=== PATIENT | male | born 1980 | race African-American/Black ===

== ENCOUNTER 2018-07-28 12:54 | Emergency (ER) | payer OTHER ==
[~2018-07-28] VITALS: Ht 195.6 cm; Wt 88.5 kg
[2018-07-28 12:57] VITALS: BP 116/64
== END 2018-07-28 13:50 | disposition home or self-care (01) ==
LOC: ER 12:54
DX: S01.81XA Laceration without foreign body of other part of head, initial encounter (principal); W22.03XA Walked into furniture, initial encounter; Y93.89 Activity, other specified; Y92.89 Other specified places as the place of occurrence of the external cause; Y99.8 Other external cause status; F17.210 Nicotine dependence, cigarettes, uncomplicated

== ENCOUNTER 2019-12-31 17:57 | Emergency (ER) | payer OTHER ==
[~2019-12-31] VITALS: Ht 195.6 cm; Wt 89.8 kg
[2019-12-31] MEDS ORDERED: NORCO 5-325 TA1 EAC2 PO (19:54)
[2019-12-31 20:44] VITALS: BP 137/82
== END 2019-12-31 20:44 | disposition home or self-care (01) ==
LOC: ER 17:57
DX: S92.322A Displaced fracture of second metatarsal bone, left foot, initial encounter for closed fracture (principal); S70.312A Abrasion, left thigh, initial encounter; S80.812A Abrasion, left lower leg, initial encounter; M79.89 Other specified soft tissue disorders; F17.210 Nicotine dependence, cigarettes, uncomplicated; V69.88XA Occupant (driver) (passenger) of heavy transport vehicle injured in other specified transport accidents, initial encounter; Y93.I9 Activity, other involving external motion; Y92.488 Other paved roadways as the place of occurrence of the external cause; Y99.8 Other external cause status